=== PATIENT | male | born 1985 | race Caucasian/White ===

== ENCOUNTER 2017-12-14 02:33 | Emergency (ER) | payer SELFPAY ==
[2017-12-14] MEDS ORDERED: Lidocaine 1% 30 ML SDV INJECT ONE (02:35)
--- NOTE | 2017-12-14 03:32 | EDM.PDOC ---
ED HPI GENERAL MEDICAL PROBLEM - General Chief Complaint: Laceration Stated Complaint: Laceration to Right Pointer Finger Time Seen by Provider: 12/14/17 03:00 Source of Information: Reports: Patient History Limitations: Reports: No Limitations - History of Present Illness INITIAL COMMENTS - FREE TEXT/NARRATIVE: I do smell alcohol. The patient does have a large laceration of his right hand. He is right-handed. He states that he was pushing onto a window and he does routinely with another friend and this time it pushed through and he ended up lacerating his right hand. He was bleeding quite a bit. We are able to stop the bleeding with the piece of Vicryl. His tetanus is up-to-date he says. 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 He admits to doing marijuana in the past. He also admits to drinking alcohol daily. He is coming in by significant other. He asked about pain medications and I did say that I don't believe that he needs any pain medications and he did agree with me. He pallor procedure quite well. I do hope that he will come back for suture removal but he has already alluded to the fact that he'll probably take out his own sutures. Onset: Today, Sudden Quality: Reports: Sharp Severity: Severe Improves with: Reports: Other (direct Pressure) Worsens with: Reports: Movement Context: Reports: Trauma Associated Symptoms: Reports: No Other Symptoms - Related Data Allergies Allergy/AdvReac Type Severity Reaction Status Date / Time levofloxacin [From Levaquin] Allergy Anaphylactic Verified 12/14/17 02:35 Shock Home Meds: Home Meds . [No Known Home Meds] 03/25/16 [History] Past Medical History - Past Health History Medical/Surgical History: Denies Medical/Surgical History Musculoskeletal History: Reports: Other (See Below) Other Musculoskeletal History: History of a broken arm Social & Family History - Tobacco Use Smoking Status *Q: Current Every Day Smoker Years of Tobacco use: 3 Packs/Tins Daily: 0.5 - Recreational Drug Use Recreational Drug Use: Yes Recreational Drug Type: Reports: Marijuana/Hashish, Other (see below) Other Recreational Drug Type: States he used to take harder drugs, but not any more. Recreational Drug Use Frequency: Weekly ED ROS GENERAL - Review of Systems Review Of Systems: ROS reveals no pertinent complaints other than HPI. Constitutional: Reports: Fever, Chills HEENT: Reports: No Symptoms Respiratory: Reports: No Symptoms Cardiovascular: Reports: No Symptoms Endocrine: Reports: No Symptoms Skin: Reports: Other (Laceration of the right index finger. And superficial laceration of the fourth finger palmar aspects.) ED EXAM, SKIN/RASH Exam: See Below Exam Limited By: No Limitations General Appearance: Alert Respiratory/Chest: No Respiratory Distress, Lungs Clear Cardiovascular: Normal Peripheral Pulses, Regular Rate, Rhythm Extremities: Other (Right hand has a large laceration of the right index finger and a superficial laceration of the fourth finger. Both are palmar aspects. Good capillary refill and good range of motion good strength. A lot of blood coming from the right index finger. The laceration was 4.5 centimeters and deep and gaping and into the subcutaneous tissue.) ED SKIN PROCEDURES - Laceration/Wound Repair Right Hand Lac/Wound length In cm: 4.5 Appearance: Subcutaneous, Irregular, Mildly Contaminated, Other (Large hockey stick configuration. Deep and into sub q tissue. ) Distal NVT: Neuro & Vascular Intact Anesthetic Type: Digital Local Anesthesia - Lidocaine (Xylocaine): 1% Plain Local Anesthetic Volume: 5cc Skin Prep: Saline Exploration/Debridement/Repair: Wound Explored, No Foreign Material Found Closed with: Sutures Suture Size: 4-0 # of Sutures: 7 Suture Type: Nylon, Interrupted Suture Size: 4-0 # of Sutures: 3 Repaired with: Vicryl Drain Placement: No Sterile Dressing Applied: Nurse Tetanus Status Addressed: Yes (Has had one he says when he has had other lacerations. 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.) Complications: No Course - Vital Signs Last Recorded V/S: Last Vital Signs Temp 36.4 C 12/14/17 03:16 Pulse 96 12/14/17 03:16 Resp 18 12/14/17 03:16 BP 154/86 H 12/14/17 03:16 Pulse Ox 99 12/14/17 03:16 - Orders/Labs/Meds Meds: Medications Discontinued Medications Generic Name Dose Route Start Last Admin Trade Name Foxq PRN Reason Stop Dose Admin Lidocaine HCl 30 ml 12/14/17 02:35 12/14/17 03:00 Xylocaine-Mpf 1% INJECT 12/14/17 02:36 30 ml ONETIME ONE Administration Departure - Departure Time of Disposition: 03:27 Disposition: Home, Self-Care 01 Condition: Good Clinical Impression: Laceration of right index finger w/o foreign body w/o damage to nail Qualifiers: Encounter type: initial encounter Qualified Code(s): S61.210A - Laceration without foreign body of right index finger without damage to nail, initial encounter - Discharge Information Instructions: Laceration Care, Adult Referrals: PCP,None [Primary Care Provider] - Forms: ED Department Discharge Additional Instructions: Allow soapy shower water to irrigate over the wound but do not scrub per se. Look for signs of infection. Return in 7 days for suture removal. Apply triple antibiotic ointment daily and change dressing daily. Keep clean. Tylenol for pain.
== END 2017-12-14 03:52 | disposition home or self-care (01) ==
LOC: VM.ED 02:33
DX: S61.210A Laceration without foreign body of right index finger without damage to nail, initial encounter (principal); S61.214A Laceration without foreign body of right ring finger without damage to nail, initial encounter; W26.8XXA Contact with other sharp object(s), not elsewhere classified, initial encounter
CPT/HCPCS: 12002; 12042; 99283; 99283-GF-25

== ENCOUNTER 2019-11-20 05:50 | Emergency (ER) | payer SELFPAY ==
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
[2019-11-20 06:35] LABS: BARBITURATE SCREEN,URINE NEGATIVE (NEGATIVE); BENZODIAZEPINES SCREEN,URINE NEGATIVE (NEGATIVE); EDDP,URINE SCREEN NEGATIVE (NEGATIVE); METHAMPHETAMINE SCREEN, URINE POSITIVE (NEGATIVE); TCA SCREEN,URINE NEGATIVE (NEGATIVE); THC SCREEN,URINE 50 NG/ML POSITIVE (NEGATIVE)
[2019-11-20 06:38] LABS: CHLORIDE,CL 108 mmol/L (98-107); SODIUM,NA 145 mmol/L (136-145)
[2019-11-20 06:39] LABS: ANION GAP 13.7 mmol/L (10-20)
== END 2019-11-20 06:52 ==
LOC: VM.ED 05:50
DX: F10.129 Alcohol abuse with intoxication, unspecified (principal); Y90.7 Blood alcohol level of 200-239 mg/100 ml; I10 Essential (primary) hypertension; Z88.8 Allergy status to other drugs, medicaments and biological substances
CPT/HCPCS: 36415; 80053; 80305-QW; 80307; 81003; 83735; 85025; 99283-GF; 99284